=== PATIENT | male | born 1985 | race Caucasian/White ===

== ENCOUNTER 2016-08-16 23:38 | Emergency (ER) | payer SELFPAY ==
[~2016-08-16] VITALS: Ht 182.9 cm; Wt 86.3 kg
[~2016-08-16 23:38] MED LIST: ANTIBIOTIC; [UNRECOGNIZED DRUG - REMARK]
[2016-08-16 23:41] VITALS: Ht 182.9 cm; Wt 86.3 kg
== END 2016-08-17 04:13 | disposition left against medical advice (07) ==
LOC: FTE 23:38
DX: Z53.21 Procedure and treatment not carried out due to patient leaving prior to being seen by health care provider (principal)

== ENCOUNTER 2016-08-18 22:28 | Emergency (ER) | payer MEDICAID ==
[~2016-08-18] VITALS: Ht 162.6 cm; Wt 86.5 kg
[2016-08-18 22:30] VITALS: Ht 162.6 cm; Wt 86.5 kg
[2016-08-19] MEDS ORDERED: HYDROCODONE/APAP (5/325) TAB PO ONE
--- NOTE | 2016-08-19 00:42 | RADRPT ---
PROCEDURE: CT BRAIN WITHOUT CONTRAST CLINICAL INDICATION: 30-year-old male with headaches. TECHNIQUE: The study was performed utilizing a GE [employer] VCT 64-slice CT scanner. Direct axia l sections were obtained from the foramen magnum to the vertex without the use of intravenous contra st material. Sagittal and coronal reformations were obtained. One or more the following dose reduct ion techniques were utilized: automated exposure control, adjustment of the mA and/or kV according t o patient's size or use of iterative reconstruction technique. The images were viewed on a PACS [employer]upon. CTD/vol = 44.7 mGy; Total Exam DLP = 720.2 mGy-cm. COMPARISON: None. FINDINGS: The ventricles have a normal size, shape and position. There is no evidence for mass effect or midl ine shift. There are no intracranial areas of abnormal attenuation. There is no evidence for acute intra or extra-axial blood. The bony calvarium is intact. There is mild mucosal thickening within t he ethmoid air cells and partially visualized maxillary sinuses. No air-fluid levels are noted. Th e mastoid air cells are without significant soft tissue para IMPRESSION: 1. The intracranial contents are unremarkable on this noncontrast CT scan of the brain. 2. Mild mucosal thickening ethmoid air cells and partially visualized maxillary sinuses. .Epifanio Alexis MD, Date Time Electronically viewed and signed by .Epifanio Alexis MD, on 08/19/2016 00:41 .M/
[2016-08-19] MEDS ORDERED: AMOX1TAB10 PO (01:43)
[2016-08-19] MEDS ORDERED: HYDR-906 PO (01:43)
[2016-08-19] MEDS ORDERED: IBUP-1542 PO (01:43)
[2016-08-19 02:12] VITALS: BP 122/77; PULSE 69; RESP 20; TEMP 98.5
--- NOTE | 2016-08-19 23:18 | ERD ---
ER Documentation Chief Complaint Date/Time DATE: 08/19/16 TIME: 22:43 Chief Complaint headache x 2 weeks HPI This is a 30 year old male who presents to the ED with headache for 2 weeks. Headache is gradual in onset and intermittent 7/10 "tearing" pain. Pain is localized on bilateral occipital area and occasionally extends to the right arm. Pt has been taking advil with minimal relief. Pt denies any recent trauma. Denies fever, chills, nausea, vomiting, vision changes, weakness, cough, shortness of breath, chest pain or paresthesia. No recent sick contacts or foreign travel. Denies smoking, alcohol or illicit drug use. ROS All systems reviewed and are negative except as per history of present illness. Medications Home Meds Active Scripts Hydrocodone/Acetaminophen ([place] 5-325 Tablet) 1 Each Tablet, 1 TAB PO Q6H Y for PAIN, #10 TAB Prov:YOU LEY 08/19/16 Ibuprofen* (Motrin*) 600 Mg Tab, 600 MG PO Q6H Y for PAIN AND OR ELEVATED TEMP, #30 TAB Prov:YOU LEY 08/19/16 Amoxicillin/Potassium Clav (Amox-Clav 875-125 mg Tablet) 875-125 mg Tab, 1 TAB PO BID for 7 Days, #14 TAB Prov:YOU LEY 08/19/16 Reported Medications [antibiotic inj] No Conflict Check 04/12/09 [unk antibodic] No Conflict Check 04/12/09 Allergies Allergies: Coded Allergies: No Known Allergies (Verified Allergy, Mild, 08/18/16) PMhx/Soc History of Surgery: No Hx Neurological Disorder: No Hx Respiratory Disorders: No Hx Cardiac Disorders: No Hx Miscellaneous Medical Probl: No Hx Alcohol Use: No Hx Substance Use: No Hx Tobacco Use: No Smoking Status: Never smoker Physical Exam Vitals Vital Signs Date Time Temp Pulse Resp B/P Pulse Ox O2 Delivery O2 Flow Rate FiO2 08/19/16 02:12 98.5 69 20 122/77 98 Room Air 08/18/16 22:30 98.1 78 20 119/69 98 Physical Exam Physical Exam CONST: Well-developed, well-nourished, in no acute distress. Nontoxic in appearance. HEENT: Atraumatic. Normal conjunctiva. EOM intact. TM intact. External ear is normal. Clear oropharynx without erythema. No uvular deviation. Moist mucous membranes. Supple neck. No meningismus. No submandibular induration. RESP: Clear to auscultation bilaterally. No wheezing. CARDIO: Regular rate and rhythm, no murmurs. ABD: Soft, non tender, non distended. Normal bowel sounds. No McBurney' s point tenderness. No guarding or rigidity. No peritoneal signs. SKIN: No petechiae or rashes. BACK: No midline or flank tenderness. EXT: No cyanosis or edema. Distal pulses equal and bilateral. NEURO: Awake and alert, appropriate for age. 5/5 strength in all extremities. Normal speech. Steady gait. Results 24 hrs Current Medications Medications (Trade) Dose Ordered Sig/Mariano Route PRN Reason Start Time Stop Time Status Last Admin Dose Admin Acetaminophen/ Hydrocodone Bitart ([place] (5/325)) 1 tab ONCE ONCE PO 08/19/16 00:00 08/19/16 00:01 DC 08/19/16 00:06 PROCEDURE: CT BRAIN WITHOUT CONTRAST CLINICAL INDICATION: 30-year-old male with headaches. TECHNIQUE: The study was performed utilizing a [employer] VCT 64-slice CT scanner. Direct axial sections were obtained from the foramen magnum to the vertex without the use of intravenous contrast material. Sagittal and coronal reformations were obtained. One or more the following dose reduction techniques were utilized: automated exposure control, adjustment of the mA and/or kV according to patient's size or use of iterative reconstruction technique. The images were viewed on a PACS workstation. CTD/vol = 44.7 mGy; Total Exam DLP = 720.2 mGy-cm. COMPARISON: None. FINDINGS: The ventricles have a normal size, shape and position. There is no evidence for mass effect or midline shift. There are no intracranial areas of abnormal attenuation. There is no evidence for acute intra or extra-axial blood. The bony calvarium is intact. There is mild mucosal thickening within the ethmoid air cells and partially visualized maxillary sinuses. No air-fluid levels are noted. The mastoid air cells are without significant soft tissue para IMPRESSION: 1. The intracranial contents are unremarkable on this noncontrast CT scan of the brain. 2. Mild mucosal thickening ethmoid air cells and partially visualized maxillary sinuses. .Epifanio Alexis MD, Date Time Electronically viewed and signed by .Epifanio Alexis MD, MD on 08/19/2016 00:41 Procedures/MDM EMERGENCY DEPARTMENT COURSE/MEDICAL DECISION MAKING This is a 30 year old male who comes to the emergency room secondary to complaints of occipital headache for 2 weeks that occasionally extends to the left arm. The patient was given norco for pain. On re-evaluation, the patient's symptoms improved. Given the duration of his headache, CT of the head was ordered to rule out intracranial bleed or mass and was then interpreted by a radiologist. Results is negative for mass or bleed, but has mild mucosal thickening ethmoid air cells and partially visualized maxillary sinuses. I believe that his headache is caused by the sinusitis and I will order antibiotics. I also believe that his left arm pain is caused by sciatica. Pt denies any recent trauma. My primary diagnosis is headache. Secondary diagnosis is sinusitis Differential diagnoses considered but not limited to fracture, ME, intracranial mass, intracranial bleed, meningitis, sciatica, migraine, sinusitis, rhinorrhea. Pt is hemodynamically stable upon reassessment. There are no new complaints during the ED course. The patient was discharged for outpatient management with a prescription for augmentin, norco and ibuprofen. The patient was advised to followup with their PMD in 1-2 days and to return to the Emergency Department if there are any new or worsening symptoms. The patient understood and agreed with the diagnosis, treatment and plan. Patient is stable for discharge at this time. Departure Diagnosis: Primary Impression: Headache Headache type: unspecified Headache chronicity pattern: acute headache Intractability: intractable Qualified Code: R51 - Acute intractable headache , unspecified headache type Additional Impression: Sinusitis Sinusitis location: ethmoidal Chronicity: acute Recurrence: not specified as recurrent Qualified Code: J01.20 - Acute ethmoidal sinusitis, recurrence not specified Condition: Stable Patient Instructions: Self-Care for Headaches Referrals: [facility] Usted se baxter hecho un examen mdico de control que le indica que no est en gilbert condicin que requiera tratamiento urgente en el Departamento de Emergencia. Un estudio ms profundo y el tratamiento de ferrer condicin pueden esperar sin ningn riesgo hasta que usted sea atendida/o en el consultorio de ferrer mdico o gilbert cl chikis. Es responsabilidad suya arreglar gilbert lolly para el seguimiento del jorge. MANEJO DE CONDICIONES NO URGENTES EN EL FUTURO 1) Si usted tiene un mdico de atencin primaria: Usted debera llamar a ferrer mdico de atencin primaria antes de venir al departamento de emergencia. Despus de las horas de consultorio, ferrer doctor o ferrer asociado/a est disponible por telfono. El mdico o enfermero de gabi en el servicio telefnico puede asesorarle por nohemy medio para atender el problema, o jorge contrario se puede programar gilbert lolly. 2) Si usted no tiene un mdico de atencin primaria: Llame al mdico o clnica de referencia que aparece abajo laisha las horas de consultorio para hacer gilbert lolly para que le vean. CLINICAS: [facility] [phone] [address] [facility] [facility] [phone] [address] [facility] [phone] [address] [facility]. [facility] [phone] [address] [facility] [place] [id number] [phone] [facility]. [phone] [address] [facility]. [facility] () Usted se baxter hecho un examen mdico de control que le indica que no est en gilbert condicin que requiera tratamiento urgente en el Departamento de Emergencia. Un estudio ms profundo y el tratamiento de ferrer condicin pueden esperar sin ningn riesgo hasta que usted sea atendida/o en el consultorio de ferrer mdico o gilbert cl chikis. Es responsabilidad suya arreglar gilbert lolly para el seguimiento del jorge. MANEJO DE CONDICIONES NO URGENTES EN EL FUTURO 1) Si usted tiene un mdico de atencin primaria: Usted debera llamar a ferrer mdico de atencin primaria antes de venir al departamento de emergencia. Despus de las horas de consultorio, ferrer doctor o ferrer asociado/a est disponible por telfono. El mdico o enfermero de agbi en el servicio telefnico puede asesorarle por nohemy medio para atender el problema, o jorge contrario se puede programar gilbert lolly. 2) Si usted no tiene un mdico de atencin primaria: Llame al mdico o condado institucions de referencia que aparece abajo laisha las horas de consultorio para hacer gilbert lolly para que le vean. SI USTED NO PUEDE PAGAR PARA MITA UN MEDICO puede ir a: [facility] [address] [place] [address] [facility] [address] [place] [address] [facility] [address] [place] [address] [facility]A [facility] [address] [place], [place] [id number] Additional Instructions: Llame a ferrer mdico de atencin primaria maana para hacer gilbert lolly laisha los pr ximos veloz 1-2. Volver al Departamento de la emergencia inmediatamente si tiene cualquier s ntoma nuevo o que empeora. [place] todos los medicamentos edgardo lo indique. YOU LEY August 19, 2016 22:56
== END 2016-08-19 02:13 | disposition home or self-care (01) ==
LOC: FTE 22:28
DX: R51 Headache (principal); J01.20 Acute ethmoidal sinusitis, unspecified
CPT/HCPCS: 70450; Z7610

== ENCOUNTER 2016-09-27 23:08 | Emergency (ER) | payer MEDICAID ==
[~2016-09-27] VITALS: Ht 162.6 cm; Wt 88.0 kg
[~2016-09-27 23:08] MED LIST changes: +AMOX1TAB10 PO; +HYDR-906 PO; +IBUP-1542 PO
[2016-09-27 23:12] VITALS: Ht 162.6 cm; Wt 88.0 kg
[2016-09-27] MEDS ORDERED: CEPH-443 PO (23:37)
[2016-09-27] MEDS ORDERED: TRIA15CR55 TOP (23:37)
[2016-09-27] MEDS ORDERED: BACITUD TOP (23:38)
--- NOTE | 2016-09-27 23:39 | ERD ---
ER Documentation Chief Complaint Date/Time DATE: 09/27/16 TIME: 23:39 Chief Complaint wound/dryness on finger HPI Patient is a 30-year-old male with no past medical history who presents to the ED with a rash on the second digit of his right hand. He states that it started with a lesion 2 months ago however the lesion has grown. He states that it chambers and itches and is dry. Denies fever or chills. Denies difficulty moving his fingers. Denies trauma. 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 Denies any other complaints. Has not tried any medication for symptoms. ROS All systems reviewed and are negative except as per history of present illness. Medications Home Meds Active Scripts Bacitracin* (Bacitracin Oint (UD)*) 1 Applic Oint, 1 APPLIC TOP ONCE for 10 Days , PKT APPLY TO Prov:VALORIE CHASE PA-C 09/27/16 Triamcinolone Acetonide (Triamcinolone Acetonide) 0.1% - 15 Gm Cream.gm., 1 APPLIC TOP BID, #1 TUB Prov:VALORIE CHASE PA-C 09/27/16 Cephalexin* (Keflex*) 500 Mg Capsule, 500 MG PO QID for 5 Days, CAP Prov:VALORIE CHASE PA-C 09/27/16 Hydrocodone/Acetaminophen ([place] 5-325 Tablet) 1 Each Tablet, 1 TAB PO Q6H Y for PAIN, #10 TAB Prov:YOU LYE 08/19/16 Ibuprofen* (Motrin*) 600 Mg Tab, 600 MG PO Q6H Y for PAIN AND OR ELEVATED TEMP, #30 TAB Prov:YOU LEY 08/19/16 Amoxicillin/Potassium Clav (Amox-Clav 875-125 mg Tablet) 875-125 mg Tab, 1 TAB PO BID for 7 Days, #14 TAB Prov:YOU LEY 08/19/16 Reported Medications [antibiotic inj] No Conflict Check 04/12/09 [unk antibodic] No Conflict Check 04/12/09 Allergies Allergies: Coded Allergies: No Known Allergies (Verified Allergy, Mild, 08/18/16) PMhx/Soc History of Surgery: No Anesthesia Reaction: No Hx Neurological Disorder: No Hx Respiratory Disorders: No Hx Cardiac Disorders: No Hx Miscellaneous Medical Probl: No Hx Alcohol Use: No Hx Substance Use: No Hx Tobacco Use: No FmHx Family History: No coronary disease, No diabetes, No other Physical Exam Vitals Vital Signs Date Time Temp Pulse Resp B/P Pulse Ox O2 Delivery O2 Flow Rate FiO2 09/27/16 23:12 99.5 102 18 124/78 95 Physical Exam GENERAL: Well-developed, well-nourished male. Appears in no acute distress. NECK: Supple. No lymphadenopathy or thyromegaly. No meningismus. negative kernig. negative brudinski. LUNG: Clear to auscultation bilaterally. No rhonchi, wheezing, rales or coarse breath sounds. HEART: Regular rate and rhythm. No murmurs, rubs or gallops. Extremities: Equal pulses bilaterally. No peripheral clubbing, cyanosis or edema. No unilateral leg swelling. NEUROLOGIC: Alert and oriented. Moving all four extremities. 5/5 strength in all extremities. Normal speech. Steady gait. SKIN: Normal color. Warm and dry. Dry crusting slightly erythematous and white plaque on the second digit of the right finger. With mild excoriations. No signs of warmth. No step-offs or deformities.. Capillary refill < 2 seconds Procedures/MDM ER COURSE: I kept the patient and/or family informed of laboratory and diagnostic imaging results throughout the emergency room course. MEDICAL DECISION MAKING: This is a 30-year-old male who presents with rash to his finger. Vital signs were reviewed. Patient is afebrile. Patient is not hypoxic. Patient is nontoxic or ill-appearing. Patient has rash of unknown etiology. Low suspicion for necrotizing fasciitis, SJS, toxic epidermal necrolysis, Kawasaki, erythema multiforme, gangrene, scarlet fever, meningococcemia, sepsis, anaphylaxis, sepsis, deep space infection, or foreign body. DISCHARGE: At this time, patient is stable for discharge and outpatient management with no new complaints during the ER course. Patient was sent home with Keflex, triamcinolone cream and bacitracin. Patient will be discharged home with instructions to recheck for new or worsening symptoms such as fever, nausea, weakness, LOC and to follow up with primary care in the next 1-2 days. Patient was advised to return to the ER for any new or worsening symptoms. Plan was discussed and patient and/or family understands and agrees. Home instructions were given. Departure Diagnosis: Primary Impression: Rash Condition: Stable Patient Instructions: Self-Care for Skin Rashes Referrals: [facility]) Usted se baxter hecho un examen mdico de control que le indica que no est en gilbert condicin que requiera tratamiento urgente en el Departamento de Emergencia. Un estudio ms profundo y el tratamiento de ferrer condicin pueden esperar sin ningn riesgo hasta que usted sea atendida/o en el consultorio de ferrer mdico o gilbert cl chikis. Es responsabilidad suya arreglar gilbert bonnie para el seguimiento del jorge. MANEJO DE CONDICIONES NO URGENTES EN EL FUTURO 1) Si usted tiene un mdico de atencin primaria: Usted debera llamar a ferrer mdico de atencin primaria antes de venir al departamento de emergencia. Despus de las horas de consultorio, ferrer doctor o ferrer asociado/a est disponible por telfono. El mdico o enfermero de gabi en el servicio telefnico puede asesorarle por nohemy medio para atender el problema, o jorge contrario se puede programar gilbert bonnie. 2) Si usted no tiene un mdico de atencin primaria: Llame al mdico o clnica de referencia que aparece abajo laisha las horas de consultorio para hacer gilbert bonnie para que le vean. CLINICAS: [facility] [phone] [address] [facility] [phone] [facility] [phone] [facility] [phone] [facility] [phone] [address] [facility]. [phone] [address] Additional Instructions: Llame al doctor MAANA y catalino gilebrt BONNIE PARA DENTRO DE 1-2 SLATER.Dgale a la secretaria que nosotros le instruimos hacer esta bonnie.Avise o llame si ferrer condicin se empeora antes de la bonnie. Regresa aqui si peor o no mejor. VALORIE CHASE PA-C Sep 27, 2016 23:39
== END 2016-09-28 00:01 | disposition home or self-care (01) ==
LOC: FTE 23:08
DX: R21 Rash and other nonspecific skin eruption (principal)
CPT/HCPCS: 99284

== ENCOUNTER 2016-10-15 18:23 | Emergency (ER) | payer MEDICAID ==
[~2016-10-15] VITALS: Ht 167.6 cm; Wt 87.5 kg
[~2016-10-15 18:23] MED LIST changes: +BACITUD TOP; +CEPH-443 PO; +KENC1 TOP
[2016-10-15 18:25] VITALS: Ht 167.6 cm; Wt 87.5 kg
--- NOTE | 2016-10-15 19:54 | ERD ---
ER Documentation Chief Complaint Date/Time DATE: 10/15/16 TIME: 19:52 Chief Complaint 10/10 head pain with dizziness x 1 week HPI 30-year-old male presents here in emergency department for complaints of headache and dizziness on and off for the last one week. Patient's complaining of headache, throbbing pain,4/10 scale, is accompanied with nausea and dizziness at times. Patient denies any head injury. Patient denies any numbness or tingling. Patient denies any changes in balance or memory. Patient denies any fever or chills. Patient denies any neck pain. ROS All systems reviewed and are negative except as per history of present illness. Medications Home Meds Active Scripts Bacitracin* (Bacitracin Oint (UD)*) 1 Applic Oint, 1 APPLIC TOP ONCE for 10 Days , PKT APPLY TO Prov:VALORIE CHASE PA-C 09/27/16 Triamcinolone Acetonide (Triamcinolone Acetonide) 0.1% - 15 Gm Cream.gm., 1 APPLIC TOP BID, #1 TUB Prov:VALORIE CHASE PA-C 09/27/16 Cephalexin* (Keflex*) 500 Mg Capsule, 500 MG PO QID for 5 Days, CAP Prov:VALORIE CHASE PA-C 09/27/16 Hydrocodone/Acetaminophen ([place] 5-325 Tablet) 1 Each Tablet, 1 TAB PO Q6H Y for PAIN, #10 TAB Prov:YOU LEY 08/19/16 Ibuprofen* (Motrin*) 600 Mg Tab, 600 MG PO Q6H Y for PAIN AND OR ELEVATED TEMP, #30 TAB Prov:YOU LEY 08/19/16 Amoxicillin/Potassium Clav (Amox-Clav 875-125 mg Tablet) 875-125 mg Tab, 1 TAB PO BID for 7 Days, #14 TAB Prov:YOU LEY 08/19/16 Reported Medications [antibiotic inj] No Conflict Check 04/12/09 [unk antibodic] No Conflict Check 04/12/09 Allergies Allergies: Coded Allergies: No Known Allergies (Verified Allergy, Mild, 08/18/16) PMhx/Soc Medical and Surgical Hx: pt denies Medical Hx, pt denies Surgical Hx History of Surgery: No Anesthesia Reaction: No Hx Neurological Disorder: No Hx Respiratory Disorders: No Hx Cardiac Disorders: No Hx Psychiatric Problems: No Hx Miscellaneous Medical Probl: No Hx Alcohol Use: No Hx Substance Use: No Hx Tobacco Use: No Smoking Status: Never smoker FmHx Family History: No coronary disease, No diabetes, No other Physical Exam Vitals Vital Signs Date Time Temp Pulse Resp B/P Pulse Ox O2 Delivery O2 Flow Rate FiO2 10/15/16 18:25 98.9 79 18 141/80 97 Physical Exam GENERAL: The patient is well developed and appropriate for usual state of health, in no apparent distress. CHEST: Clear to auscultation bilaterally. There are no rales, wheezes or rhonchi. HEART: Regular rate and rhythm. No murmurs, clicks, rubs or gallops. No S3 or S4. ABDOMEN: Soft, nontender and nondistended. Good bowel sounds. No rebound or guarding. No gross peritonitis. No gross organomegaly or masses. No Maradiaga sign or McBurney point tenderness. BACK: No midline or flank tenderness. EXTREMITIES: Equal pulses bilaterally. There is no peripheral clubbing, cyanosis or edema. No focal swelling or erythema. Full range of motion. Grossly neurovascularly intact. NEURO: Alert and oriented. Cranial nerves 2-12 intact. Motor strength in all 4 extremities with 5/5 strength. Sensation grossly intact. Normal speech and gait. Negative Romberg sign. Negative pronator drift. SKIN: There is no apparent rash or petechia. The skin is warm and dry. HEMATOLOGIC AND LYMPHATIC: There is no evidence of excessive bruising or lymphedema. No gross cervical, axillary, or inguinal lymphadenopathy. Results 24 hrs Current Medications Medications (Trade) Dose Ordered Sig/Mariano Route PRN Reason Start Time Stop Time Status Last Admin Dose Admin Acetaminophen/ Butalbital/ Caffeine (Fioricet) 1 tab ONCE ONCE PO 10/15/16 20:00 10/15/16 20:01 DC 10/15/16 20:37 Patient was given medication for pain here in emergency department, after treatment, patient verbalized feeling much better. Patient's pain is improved. PROCEDURE: CT Brain without contrast. CLINICAL INDICATION: Headache. TECHNIQUE: A CT of the brain without contrast was performed utilizing axial sections from the skull base through the vertex. The patient was scanned without intravenous contrast enhancement. Sagittal and coronal reformatted images were obtained using the data from the axial images. Total exam DLP is 630.20 mGy-cm. CTDIvol is 44.93 mGy. One or more of the following dose reduction techniques were used: Automated exposure control, adjustment of the mA and/or kV according to patient size, use of iterative reconstruction technique. COMPARISON: None available FINDINGS: There is normal gerardo-white matter differentiation. The ventricles and cisterns are normal. There is no intracranial hemorrhage or space-occupying lesion. There is no skull fracture or lytic lesion. IMPRESSION: 1. Normal noncontrast CT scan of the brain. 2. No intracranial hemorrhage. RPTAT: QQ .Mark Black MD, MD Date Time Electronically viewed and signed by .Mark Black MD, MD on 10/15/2016 20:39 .R/ CC: RAFIQ GOULD NARROW GAUGE OPERATOR Procedures/MDM Medical Decision Making: Patient symptoms are consistent with migraine headache , possible tension headache. There is low suspicion for neurological emergencies at this time since patients neurologic exam is normal. Patient did not have any altered level consciousness, vomiting, changes in balance or memory and did not have any head injury. Patients CT scan of the head does not show any neurological emergencies at this time. Rx: Fioricet with codeine, Zofran Dispostion: Home. Stable Departure Diagnosis: Primary Impression: Headache Headache type: unspecified Headache chronicity pattern: acute headache Intractability: not intractable Qualified Code: R51 - Acute nonintractable headache, unspecified headache type Condition: Stable Patient Instructions: Self-Care for Headaches RAFIQ GOULD NP Oct 15, 2016 19:54
[2016-10-15] MEDS ORDERED: ACET/BUTAL/CAFF TAB PO ONE (20:00)
--- NOTE | 2016-10-15 20:39 | RADRPT ---
PROCEDURE: CT Brain without contrast. CLINICAL INDICATION: Headache. TECHNIQUE: A CT of the brain without contrast was performed utilizing axial sections from the skul l base through the vertex. The patient was scanned without intravenous contrast enhancement. Sagitta l and coronal reformatted images were obtained using the data from the axial images. Total exam DLP is 630.20 mGy-cm. CTDIvol is 44.93 mGy. One or more of the following dose reduction techniques we re used: Automated exposure control, adjustment of the mA and/or kV according to patient size, use o f iterative reconstruction technique. COMPARISON: None available FINDINGS: There is normal gerardo-white matter differentiation. The ventricles and cisterns are normal. There is no intracranial hemorrhage or space-occupying lesion. There is no skull fracture or lytic lesion. IMPRESSION: 1. Normal noncontrast CT scan of the brain. 2. No intracranial hemorrhage. RPTAT: QQ .Mark Black MD, MD Date Time Electronically viewed and signed by .Mark Black MD, MD on 10/15/2016 20:39 .R/
[2016-10-15] MEDS ORDERED: ONDA4TAB14 PO (21:01)
[2016-10-15] MEDS ORDERED: BUTA1CAP39 PO (21:01)
[2016-10-15 21:31] VITALS: BP 133/71; PULSE 71; RESP 20; TEMP 98.3
== END 2016-10-15 21:31 | disposition home or self-care (01) ==
LOC: FTE 18:23
DX: R51 Headache (principal)
CPT/HCPCS: 70450; Z7502; Z7610

== ENCOUNTER 2018-06-26 00:32 | Emergency (ER) | payer MEDICAID, OTHER ==
[~2018-06-26] VITALS: Ht 167.6 cm; Wt 87.8 kg
[~2018-06-26 00:32] MED LIST changes: +BUTA1CAP39 PO; +HYDR-4011 PO; -HYDR-906 PO; -KENC1 TOP; +ONDA4TAB14 PO; +TRIA15CR55 TOP
[2018-06-26 00:49] VITALS: Ht 167.6 cm; Wt 87.8 kg
[2018-06-26] MEDS ORDERED: IBUP-1542 PO (05:15)
--- NOTE | 2018-06-26 05:17 | ERD ---
ER Documentation Chief Complaint Chief Complaint on/off dizziness,palpitations,L arm tingling x 4 days HPI 32-year-old male presents with left arm tingling for last 4 days. He also has intermittent palpitations. He also has intermittent numbness on his extremities and lips. Denies any fevers, vomiting, shortness breath, abdominal pain, urinary complaints. ROS All systems reviewed and are negative except as per history of present illness. Medications Home Meds Active Scripts Ibuprofen* (Motrin*) 600 Mg Tab, 600 MG PO Q6, #20 TAB Prov:LAKSHMI ESPINOSA MD 06/26/18 Ondansetron (Ondansetron Odt) 4 Mg Tab.rapdis, 4 MG PO Q8 PRN for NAUSEA AND/OR VOMITING, #30 TAB Prov:RAFIQ GOULD NP 10/15/16 Uqotgegqexirh-Zrrysuwaic-Sqgqtsbz-Codeine* (Fioricet w/ Codeine*) [id number] Capsule, 1 CAP PO Q6H PRN for PAIN LEVEL 1-5, #20 CAP Prov:RAFIQ GOULD NP 10/15/16 Bacitracin* (Bacitracin Oint (UD)*) 1 Applic Oint, 1 APPLIC TOP ONCE for 10 Days, PKT APPLY TO Prov:VALORIE CHASE PA-C 09/27/16 Triamcinolone Acetonide (Triamcinolone Acetonide) 0.1% - 15 Gm Cream.gm., 1 APPLIC TOP BID, #1 TUB Prov:VALORIE CHASE PA-C 09/27/16 Cephalexin* (Keflex*) 500 Mg Capsule, 500 MG PO QID for 5 Days, CAP Prov:VALORIE CHASE PA-C 09/27/16 Hydrocodone/Acetaminophen ([place] 5-325 Tablet) 1 Each Tablet, 1 TAB PO Q6H PRN for PAIN, #10 TAB Prov:YOU LEY 08/19/16 Ibuprofen* (Motrin*) 600 Mg Tab, 600 MG PO Q6H PRN for PAIN AND OR ELEVATED TEMP, #30 TAB Prov:YOU LEY 08/19/16 Amoxicillin/Potassium Clav (Amox-Clav 875-125 mg Tablet) 875-125 mg Tab, 1 TAB PO BID for 7 Days, #14 TAB Prov:YOU LEY 08/19/16 Reported Medications [antibiotic inj] No Conflict Check 04/12/09 [unk antibodic] No Conflict Check 04/12/09 Allergies Allergies: Coded Allergies: No Known Allergies (Verified Allergy, Mild, 08/18/16) PMhx/Soc History of Surgery: No Anesthesia Reaction: No Hx Neurological Disorder: No Hx Respiratory Disorders: No Hx Cardiac Disorders: No Hx Psychiatric Problems: No Hx Miscellaneous Medical Probl: No Hx Alcohol Use: No Hx Substance Use: No Hx Tobacco Use: No Smoking Status: Never smoker FmHx Family History: No diabetes, No coronary disease, No other Physical Exam Vitals Vital Signs Date Temp Pulse Resp B/P (MAP) Pulse Ox O2 O2 Flow FiO2 Time Delivery Rate 06/26/18 99.3 79 18 135/75 98 00:49 (95) Physical Exam Const: No acute distress Head: Atraumatic Eyes: Normal Conjunctiva ENT: Normal External Ears, Nose and Mouth. Neck: Full range of motion. No meningismus. Resp: Clear to auscultation bilaterally Cardio: Regular rate and rhythm, no murmurs Abd: Soft, non tender, non distended. Normal bowel sounds Skin: No petechiae or rashes Back: No midline or flank tenderness Ext: No cyanosis, or edema Neur: Awake and alert Psych: Normal Mood and Affect Result Diagram: 06/26/18 0432 06/26/18 0428 Results 24 hrs Laboratory Tests Test 06/26/18 04:28 06/26/18 04:32 Sodium Level 143 mmol/L Potassium Level 3.7 mmol/L Chloride Level 103 mmol/L Carbon Dioxide Level 28 mmol/L Anion Gap 12 Blood Urea Nitrogen 16 mg/dl Creatinine 0.97 mg/dl Est Glomerular Filtrat Rate mL/min > 60 mL/min Glucose Level 96 mg/dl Calcium Level 8.9 mg/dl Total Bilirubin 0.2 mg/dl Direct Bilirubin 0.00 mg/dl Indirect Bilirubin 0.2 mg/dl Aspartate Amino Transf (AST/SGOT) 31 IU/L Alanine Aminotransferase (ALT/SGPT) 44 IU/L Alkaline Phosphatase 91 IU/L Total Protein 7.7 g/dl Albumin 4.4 g/dl Globulin 3.30 g/dl Albumin/Globulin Ratio 1.33 White Blood Count 6.7 10^3/ul Red Blood Count 4.66 10^6/ul Hemoglobin 13.9 g/dl Hematocrit 42.2 % Mean Corpuscular Volume 90.6 fl Mean Corpuscular Hemoglobin 29.8 pg Mean Corpuscular Hemoglobin Concent 32.9 g/dl Red Cell Distribution Width 12.5 % Platelet Count 228 10^3/UL Mean Platelet Volume 8.9 fl Immature Granulocytes % 0.600 % Neutrophils % 23.1 % Lymphocytes % 47.9 % Monocytes % 13.3 % Eosinophils % 14.1 % Basophils % 1.0 % Nucleated Red Blood Cells % 0.0 /100WBC Immature Granulocytes # 0.040 10^3/ul Neutrophils # 1.5 10^3/ul Lymphocytes # 3.2 10^3/ul Monocytes # 0.9 10^3/ul Eosinophils # 0.9 10^3/ul Basophils # 0.1 10^3/ul Nucleated Red Blood Cells # 0.0 10^3/ul Procedures/MDM EKG: Rate/Rhythm: Normal Sinus Rhythm. Rate equals 79 QRS, ST, T-waves: No changes consistent w/ acute ischemia Impression: No evidence of ischemia or arrhythmia CBC shows very mild anemia hemoglobin of 13.9. There is a viral pattern on differential. CMP shows no acute abnormalities. Patient was stable throughout the ER course. Patient presents with multiple symptoms of uncertain etiology. He has no signs or symptoms of cardiac chest pain, hypoxemia, abdominal pain, additional concerning signs or symptoms. He may have early viral illness. Recommending ibuprofen, primary care follow-up and return precautions. The patient was stable with no new complaints during the ER course. Clinically, there is no current evidence to suggest meningitis, sepsis, acute abdomen, pneumonia, stroke, acute coronary syndrome, pulmonary embolism, aortic dissection or any other emergent condition appearing to require further evaluation or hospitalization. Patient counseled regarding my diagnostic impression and care plan. Prior to discharge all questions answered. Pt agrees with treatment plan and understands strict return precautions. Pt is instructed to follow up with primary care provider within 24-48 hours. Precautionary instructions provided including instructions to return to the ER if not improving or for any worsening or changing symptoms or concerns. Departure Diagnosis: Primary Impression: Dizziness Condition: Stable Patient Instructions: Dizziness, Unk Cause, Palpitations Referrals: NO PRIMARY,CARE PHYSICIAN (PCP) [facility] ([facility]) Usted se baxter hecho un examen mdico de control que le indica que no est en gilbert condicin que requiera tratamiento urgente en el Departamento de Emergencia. Un estudio ms profundo y el tratamiento de ferrer condicin pueden esperar sin ningn riesgo hasta que usted sea atendida/o en el consultorio de ferrer mdico o gilbert clnica. Es responsabilidad suya arreglar gilbert lolly para el seguimiento del jorge. MANEJO DE CONDICIONES NO URGENTES EN EL FUTURO 1) Si usted tiene un mdico de atencin primaria: Usted debera llamar a ferrer mdico de atencin primaria antes de venir al departamento de emergencia. Despus de las horas de consultorio, ferrer doctor o ferrer asociado/a est disponible por telfono. El mdico o enfermero de gabi en el servicio telefnico puede asesorarle por nohemy medio para atender el problema, o jorge contrario se puede programar gilbert lolly. 2) Si usted no tiene un mdico de atencin primaria: Llame al mdico o clnica de referencia que aparece abajo laisha las horas de consultorio para hacer gilbert lolly para que le vean. CLINICAS: [facility] [phone] [facility] [phone] [facility] [phone] [facility] [facility] [phone] [facility]. [place] [id number] [phone] [facility] [phone] [address] Additional Instructions: Examines normal hoy. Cheque otro vez con ferrer doctor primario en el proximo jeronimo or regresa para mas o nueva simptomas. LAKSHMI ESPINOSA MD Jun 26, 2018 05:17
[2018-06-26 05:23] VITALS: BP 128/80; PULSE 77; RESP 16
== END 2018-06-26 05:23 | disposition home or self-care (01) ==
LOC: FTE 00:32
DX: R42 Dizziness and giddiness (principal)
CPT/HCPCS: 80053; 85025; 93005; Z7502